=== PATIENT | male | born 1965 | race Caucasian/White ===

== ENCOUNTER 2018-02-15 11:23 | Emergency (ER) | payer OTHER ==
[2018-02-15] MEDS ORDERED: HYDROCODONE/APAP 10/325 TAB ONE (12:29)
[2018-02-15] MEDS ORDERED: DIAZEPAM 5 MG TABLET ONE (12:30)
--- NOTE | 2018-02-15 12:44 | EDPHYS ---
Physician Documentation [facility] Name: Rylan Martins Age: 53 yrs Sex: Male : 1965 Arrival Date: 02/15/2018 Time: 11:28 Bed 18 Private MD: ED Physician Hector Lora HPI: 02/15 12:23 This 53 yrs old Male presents to ER via Ambulatory with complaints of Back jmm Pain. 12:23 The patient presents with pain that is acute. The symptoms are located in the low back. jmm Onset: The symptoms/episode began/occurred acutely, 1 month(s) ago. The pain radiates. Associated signs and symptoms: Pertinent positives: right leg. Associated signs and symptoms: Pertinent negatives: fever, incontinence, numbness, urinary retention, weakness. The problem was sustained when bending over, when lifting heavy object. This is a 53 year old male with no chronic medical conditions that presents to the ED with lower back pain which radiates to the right leg. Symptoms have been ongoing for approxmately a month after lifting a steel beam. Patient denies urinary retention, fecal incontinence, fever, iv drug use, previous back surgery. Patient states symptoms are exacerbated with bending over. Relieved with standing. . Historical: - Allergies: 11:29 PENICILLINS; sv - Home Meds: 11:29 None [Active]; sv - PMHx: 11:29 None; sv - PSHx: 11:29 Hernia repair; shoulder; leg implant; sv - Immunization history:: Adult Immunizations up to date. - Social history:: Smoking status: Patient uses tobacco products, smokes one pack cigarettes per day. - Ebola Screening: : No symptoms or risks identified at this time. ROS: 12:23 Constitutional: Negative for fever, chills, and weight loss, Cardiovascular: Negative jmm for chest pain, palpitations, and edema, Respiratory: Negative for shortness of breath, cough, wheezing, and pleuritic chest pain, Abdomen/GI: Negative for abdominal pain, nausea, vomiting, diarrhea, and constipation. 12:23 Back: Positive for pain with movement. 12:23 Neuro: Negative for numbness, tingling. 12:23 All other systems are negative. Exam: 12:23 Head/Face: atraumatic. jmm 12:23 Constitutional: The patient appears in no acute distress, alert, awake. 12:23 Eyes: Extraocular movements: intact throughout, Conjunctiva: normal. 12:23 Neck: supple. 12:23 Chest/axilla: Exam negative for 12:23 Cardiovascular: Rate: normal, Rhythm: regular, Pulses: no pulse deficits are appreciated. 12:23 Back: right paraspinal lumber tenderness appreciated, no midline tenderness is appreciated. 12:23 Musculoskeletal/extremity: full extensor hallus longus appreciated to the right and left foot. 12:23 Skin: Appearance: Color: normal in color. 12:23 Neuro: Orientation: is normal, Mentation: is normal, Memory: is normal, Gait: is steady. Vital Signs: 11:29 BP 135 / 82; Pulse 103; Resp 20; Pulse Ox 100% ; Weight 92.99 kg; Height 5 ft. 8 in. sv (172.72 cm); Pain 8/10; 13:05 BP 140 / 80; Pulse 92; Resp 19; Pulse Ox 99% on R/A; aj 11:29 Body Mass Index 31.17 (92.99 kg, 172.72 cm) sv MDM: 12:23 Patient medically screened. [facility] 12:23 Differential diagnosis: sciatica, lumbar sprain, muscle spasm. Data reviewed: [facility] signs, nurses notes. Special discussion: I have referred the patient to see his PCP for further evaluation of high blood pressure. ED course: No deficit of extensor hallucis longus is appreciated. Patient is alert and non toxic in appearance. Patient is afebrile and non toxic in appearance in the ED. I do not currently suspect abscess or cauda equina syndrome. Patient is encouraged to follow up with PCP for further evaluation. patient is otherwise given strict return precautions. The patient understood and agrees with the plan of care. . Administered Medications: 12: Drug: Lohman 10 mg-325 mg 1 tabs Route: PO; aj 13:07 Follow up: Response: Pain is decreased aj 12: Drug: Valium 5 mg Route: PO; aj 13:07 Follow up: Response: No adverse reaction; Pain is decreased aj Disposition: 02/16 07:18 Co-signature as Attending Physician, Hector Lora MD. Disposition: 02/15/18 12:44 Discharged to Home. Impression: Sprain of ligaments of lumbar spine, Sciatica, right side. - Condition is Stable. - Discharge Instructions: Sciatica. - Prescriptions for Valium 5 mg Oral Tablet - take 1 tablet by ORAL route every 8 hours As needed; 20 tablet. Tramadol 50 mg Oral Tablet - take 1 tablet by ORAL route every 8 hours as needed; 12 tablet. Medrol (Eduin) 4 mg Oral Tablets, Dose Pack - take 1 tablet by ORAL route as directed - follow package instructions; 1 packet. - Medication Reconciliation Form, Thank You Letter, Antibiotic Education, Prescription Opioid Use form. - Follow up: Private Physician; When: 1 - 2 days. - Notes: Please follow up with your primary care provider or return to the ED if you develop fever, numbness, weakness to your leg, difficulty with bowel movements or urination or any other concerning symptoms. Signatures: Sole Cole RN RN sv Myers, Amanda, RN RN aj Mickail, Joel, PA PA jmm Starr, Gregory, MD MD gs Corrections: (The following items were deleted from the chart) 02/15 13:09 12:44 02/15/2018 12:44 Discharged to Home. Impression: Sprain of ligaments of lumbar aj spine; Sciatica, right side. Condition is Stable. Forms are Medication Reconciliation Form, Thank You Letter, Antibiotic Education, Prescription Opioid Use. Follow up: Private Physician; When: 1 - 2 days. uriel
--- NOTE | 2018-02-15 12:44 | ER ---
Nurse's Notes [facility] Name: Rylan Martins Age: 53 yrs Sex: Male : 1965 Arrival Date: 02/15/2018 Time: 11:28 Bed 18 Private MD: Diagnosis: Sprain of ligaments of lumbar spine;Sciatica, right side Presentation: 02/15 11:28 Presenting complaint: Patient states: low back pain that started on 01/19/18 after sv picking up about a 250 pound steel beam at work. Transition of care: patient was not received from another setting of care. Onset of symptoms was January 19, 2018. Risk Assessment: Do you want to hurt yourself or someone else? Patient reports no desire to harm self or others. Initial Sepsis Screen: Does the patient meet any 2 criteria? No. Patient's initial sepsis screen is negative. Does the patient have a suspected source of infection? No. Patient's initial sepsis screen is negative. Care prior to arrival: None. 11:28 Method Of Arrival: Ambulatory sv 11:28 Acuity: BENOIT 4 sv Historical: - Allergies: 11:29 PENICILLINS; sv - Home Meds: 11:29 None [Active]; sv - PMHx: 11:29 None; sv - PSHx: 11:29 Hernia repair; shoulder; leg implant; sv - Immunization history:: Adult Immunizations up to date. - Social history:: Smoking status: Patient uses tobacco products, smokes one pack cigarettes per day. - Ebola Screening: : No symptoms or risks identified at this time. Screenin:16 Abuse screen: Denies threats or abuse. Denies injuries from another. Nutritional aj screening: No deficits noted. Tuberculosis screening: No symptoms or risk factors identified. 13:05 Fall Risk None identified. aj Assessment: 12:16 General: Appears in no apparent distress. uncomfortable, Behavior is calm, cooperative, aj appropriate for age. Pain: Complains of pain in low back area, coccyx, right lower back, right gluteus roman and right gluteal fold. Neuro: Level of Consciousness is awake, alert, obeys commands, Oriented to person, place, time, situation, Appropriate for age. Respiratory: Airway is patent Respiratory effort is even, unlabored, Respiratory pattern is regular, symmetrical. Derm: Skin is intact, is healthy with good turgor, Skin is pink, warm \T\ dry. normal. Musculoskeletal: Circulation, motion, and sensation intact. Range of motion: intact in all extremities, Reports pain in low back area, coccyx, right lower back, right gluteus roman and right gluteal fold. 13:05 Reassessment: Patient appears in no apparent distress at this time. No changes from aj previously documented assessment. Patient and/or family updated on plan of care and expected duration. Pain level reassessed. Patient is alert, oriented x 3, equal unlabored respirations, skin warm/dry/pink. Patient states symptoms have improved. Vital Signs: 11:29 BP 135 / 82; Pulse 103; Resp 20; Pulse Ox 100% ; Weight 92.99 kg; Height 5 ft. 8 in. sv (172.72 cm); Pain 8/10; 13:05 BP 140 / 80; Pulse 92; Resp 19; Pulse Ox 99% on R/A; aj 11:29 Body Mass Index 31.17 (92.99 kg, 172.72 cm) sv ED Course: 11:28 Patient arrived in ED. sv 11:29 Triage completed. sv 11:30 Arm band placed on left wrist. sv 11:30 Patient placed in waiting room. sv 12:02 Elsie Whalen, HARVINDER is Primary Nurse. aj 12:02 Walker Lu PA is PHCP. [facility] 12:02 Hector Lora MD is Attending Physician. [facility] 12:16 Patient has correct armband on for positive identification. aj 13:08 No provider procedures requiring assistance completed. Patient did not have IV access aj during this emergency room visit. Administered Medications: 12:29 Drug: Fletcher 10 mg-325 mg 1 tabs Route: PO; aj 13:07 Follow up: Response: Pain is decreased aj 12:29 Drug: Valium 5 mg Route: PO; aj 13:07 Follow up: Response: No adverse reaction; Pain is decreased Outcome: 12:44 Discharge ordered by . [facility] 13:08 Discharged to home ambulatory, with family. aj 13:08 Condition: good 13:08 Discharge instructions given to patient, family, Instructed on discharge instructions, follow up and referral plans. medication usage, Demonstrated understanding of instructions, follow-up care, medications, Prescriptions given X 3. 13:09 Patient left the ED. Signatures: Sole Cole RN RN Elsie Bosch RN RN Walker Palomo PA PA jmm
[2018-02-15 13:14] VITALS: BP 140/80; O2SAT 99
== END 2018-02-15 13:09 | disposition home or self-care (01) ==
LOC: ER 11:23
DX: S33.5XXA Sprain of ligaments of lumbar spine, initial encounter (principal); F17.210 Nicotine dependence, cigarettes, uncomplicated; Z88.0 Allergy status to penicillin; X50.0XXA Overexertion from strenuous movement or load, initial encounter; Y93.89 Activity, other specified; Y92.9 Unspecified place or not applicable; Y99.9 Unspecified external cause status
CPT/HCPCS: 99283